=== PATIENT | female | born 1960 | race Caucasian/White ===

== ENCOUNTER → 2020-06-24 | Outpatient (CLI) | payer OTHER | END | disposition home or self-care (01) | LOC: LAB 11:29 | PROVIDERS: ATTEND Nurse Anesthetist, Certified Registered | DX: Z01.812 Encounter for preprocedural laboratory examination (principal); Z12.11 Encounter for screening for malignant neoplasm of colon; Z20.828 Contact with and (suspected) exposure to other viral communicable diseases | CPT/HCPCS: U0003-CS ==

== ENCOUNTER → 2020-06-27 | Day surgery (SDC) | payer OTHER ==
[~2020-06-27] MED LIST: IPRATRPIUM/ALBUTEROL 0.5/2.5MG 3 ML NEBU. NEB PRN; LIDOCAINE 2% PF 5 ML VIAL. ONE; MIDAZOLAM HCL PF 2 MG/2 ML VIAL. IV ONE; ONDANSETRON PF 4 MG/2 ML VIAL. IV PRN; PROPOFOL 10,000 MCG/ML (20ML) VIAL IV ONE
[2020-06-27] MEDS: IV RINGERS SOLUTION,LACTATED 1,000 ML IV SCH (07:22)
[2020-06-27 09:04] VITALS: BP 118/76
--- NOTE | 2020-06-28 16:08 | PATHOLOGY ---
[facility] Accession Number: [id number] . 01 Material submitted: . PART A: cecum - CECAL POLYP PART B: hepatic flexure - HEPATIC FLEXURE . 02 Diagnosis: A. Colon biopsies, cecal polyp: - Sessile serrated polyp/adenoma. - Single hyperplastic mucosal-associated lymphoid aggregate. . B. Colon biopsies, hepatic flexure: - Hyperplastic polyp. (JPM:[facility] 06/28/2020) [facility] 06/28/2020 1044 Local . 02 Comment: There is no high-grade dysplasia or evidence of malignancy. (JP:[facility] 06/28/2020) . 02 Electronically signed: . Navneet Farnsworth MD, Pathologist NPI- [id number] . 01 Gross description: . A. Received in formalin labeled "Ella, Leslie, cecal polyp" are two aguilera-brown soft tissue fragments measuring in aggregate 1.1 x 0.8 x 0.3 cm. The specimen is submitted entirely in A1. . B. Received in formalin labeled "Ella, Leslie, hepatic flexure" is a minute fragment of aguilera white soft tissue measuring 0.2 x 0.1 x less than 0.1 cm. The specimen is submitted entirely in B1. ([facility]; 06/27/2020) SY/[facility] 06/27/2020 1934 Local . 02 Pathologist provided ICD-10: D12.0, K63.5 . 02 CPT . 937172, [id number] Specimen Comment: A courtesy copy of this report has been sent to [phone], [phone] Specimen Comment: [id number] Specimen Comment: Report sent to / DR DUNNE Performed at: 01 [facility] [address], [place], [place] [id number] MD Osbaldo Giraldo MD Phone: [phone] Performed at: 02 [facility] [address] [place], [place] [id number] MD Navneet Farnsworth MD Phone: [phone]
== END | disposition home or self-care (01) ==
LOC: SURG 07:04
PROVIDERS: ATTEND Internal Medicine Gastroenterology
DX: Z12.11 Encounter for screening for malignant neoplasm of colon (principal); D12.0 Benign neoplasm of cecum; K57.30 Diverticulosis of large intestine without perforation or abscess without bleeding; K63.89 Other specified diseases of intestine; Z79.899 Other long term (current) drug therapy; Z80.0 Family history of malignant neoplasm of digestive organs; Z98.890 Other specified postprocedural states
CPT/HCPCS: 45385; 88305; J2001; J2704; J7120